=== PATIENT | female | born 1970 | race Caucasian/White ===

== ENCOUNTER 2017-08-31 16:06 | Emergency (ER) | payer SELFPAY, OTHER ==
[2017-08-31] MEDS: predniSONE 20 MG TAB PO (19:04)
[2017-08-31] MEDS: ALBUTEROL 0.083% (NEB) 2.5 MG/3 ML AMP HHN (19:39)
== END 2017-08-31 19:52 | disposition home or self-care (01) ==
LOC: FTE 16:06
DX: J06.9 Acute upper respiratory infection, unspecified (principal); J45.901 Unspecified asthma with (acute) exacerbation
CPT/HCPCS: 94664; 99284-25